=== PATIENT | female | born 1975 | race Caucasian/White ===

== ENCOUNTER 2023-03-04 16:15 | Outpatient (CLI) | payer OTHER, SELFPAY | END 2023-03-04 16:16 | disposition home or self-care (01) | PROVIDERS: PCP Physician Assistant; Visit Provider Registered Nurse | DX: Z13.220 Encounter for screening for lipoid disorders (principal); Z13.29 Encounter for screening for other suspected endocrine disorder | CPT/HCPCS: 80061; 82947; 84443 ==

== ENCOUNTER 2023-03-22 15:40 | Outpatient (CLI) | payer OTHER, SELFPAY ==
--- NOTE | 2023-03-22 16:00 | CRLHL7_ITS ---
For Patients: As a result of the Century Cures Act, medical imaging exams and procedure reports are released immediately into your electronic medical record. You may view this report before your referring provider. If you have questions, please contact your health care provider. CLINICAL HISTORY: MISSING IUD TECHNIQUE: 2D ritchie scale and color Doppler images were acquired of the pelvis using a transvaginal approach. FINDINGS: The uterus measures 8.9 x 4.0 x 4.6 cm. Intramural leiomyoma within the left posterior fundal myometrium measuring 2.1 x 1.3 x 1.7 cm. The endometrial lining measures 7 mm in thickness. IUD is present in the lower uterine segment. The left ovary measures 2.8 x 2.1 x 2.7 cm in size and the right ovary measures 2.4 x 1.1 x 1.3 cm. The ovaries demonstrate normal arterial and venous blood flow on color Doppler analysis. There are no suspicious fluid collections within the cul-de-sac. Simple cyst left ovary measuring 1.4 x 1.8 x 1.4 cm. IMPRESSION: IUD is located within the lower uterine segment. Dictated by Jules James MD @ 03/23/2023 9:10:42 AM (Electronically Signed)
== END 2023-03-22 15:41 | disposition home or self-care (01) ==
LOC: US 15:41
PROVIDERS: Visit Provider Registered Nurse
DX: T83.32XA Displacement of intrauterine contraceptive device, initial encounter (principal)
CPT/HCPCS: 76830

== ENCOUNTER 2023-05-10 14:51 | Outpatient (CLI) | payer OTHER, SELFPAY ==
--- NOTE | 2023-05-10 15:00 | CRLHL7_ITS ---
For Patients: As a result of the Century Cures Act, medical imaging exams and procedure reports are released immediately into your electronic medical record. You may view this report before your referring provider. If you have questions, please contact your health care provider. BILATERAL SCREENING MAMMOGRAM WITH COMPUTER-AIDED DETECTION TECHNIQUE: CC and MLO views were obtained. These mammographic images have been obtained using full-field digital technique. These mammographic images were interpreted with the benefit of computer-aided detection. COMPARISON FILM: 07/16/08. FINDINGS: There are scattered areas of fibroglandular density IMPRESSION: There is no radiographic evidence for malignancy. ASSESSMENT: BI-RADS Category 1: Negative RECOMMENDATION: Routine screening mammogram in 1 year. A lay language report of this examination will be provided to the patient. Jules James M.D. Diagnostic Radiologist [email or web address] ISABELL/Dictated by: Jules James MD @ 05/11/2023 11:17:00 AM (Electronically Signed)
== END 2023-05-10 14:52 | disposition home or self-care (01) ==
LOC: MAMMO 14:52
PROVIDERS: Visit Provider Physician Assistant
DX: Z12.31 Encounter for screening mammogram for malignant neoplasm of breast (principal)
CPT/HCPCS: 77063; 77067

== ENCOUNTER 2025-03-29 13:58 | Outpatient (CLI) | payer OTHER, SELFPAY | END 2025-03-29 13:59 | disposition home or self-care (01) | PROVIDERS: Visit Provider Registered Nurse | DX: R53.83 Other fatigue (principal) | CPT/HCPCS: 82306; 84443 ==

== ENCOUNTER 2025-04-03 07:46 | Outpatient (CLI) | payer OTHER, SELFPAY | END 2025-04-03 07:47 | disposition home or self-care (01) | LOC: NFLDREF 04-05 15:19 | PROVIDERS: Visit Provider Registered Nurse | DX: Z13.6 Encounter for screening for cardiovascular disorders (principal) | CPT/HCPCS: 80061 ==

== ENCOUNTER 2025-05-01 08:49 | Outpatient (CLI) | payer OTHER, SELFPAY ==
--- NOTE | 2025-05-01 10:17 | P.ANES_ITS ---
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
--- NOTE | 2025-05-01 10:17 | W.ANESCHARGE ---
Anesthesia Charges Start Date/Time Anesthesia Start Date: 05/01/25 Anesthesia Start Time: 09:45 Stop Date/Time Anesthesia Stop Date: 05/01/25 Anesthesia Stop Time: 10:14 Coding CPT Codes CPT Codes: ANES LWR INTST SCR COLSC - [id number] ([id number]) P1 - NORMAL HEALTHY PATIENT, QZ - REGISTERED NURSE CARDIAC TELEMETRY SVC W/O RN INTENSIVE CARE UNIT BY
== END 2025-05-01 08:50 | disposition home or self-care (01) ==
LOC: OP CLINIC 08:50
PROVIDERS: Visit Provider Surgery
DX: Z12.11 Encounter for screening for malignant neoplasm of colon (principal)
CPT/HCPCS: 00812; 45378; J2704